=== PATIENT | female | born 1990 | race Caucasian/White ===

== ENCOUNTER 2017-04-16 22:53 | Emergency (ER) | payer OTHER ==
--- NOTE | 2017-04-17 01:34 | ER Document Report ---
ED General - General Chief Complaint: Possible wound infection Stated Complaint: POSSIBLE LACERATION INFECTION Time Seen by Provider: 04/17/17 01:32 Notes: Patient is a 27 year old female who presents with a week old laceration over her left thumb. States that it was closed until she was using the hand yesterday and it split back open somewhat. States that since it reopened she is concerned that it may be infected and want to have it checked. She does note a dull, constant, throbbing pain to the area. Moving the thumb worsens the pain. She is uncertain what improves the pain. She has not noted any purulent expression from the area, spreading erythema, or had fever or constitutional symptoms. She has not seen her primary care doctor regarding this concern. TRAVEL OUTSIDE OF THE [place] IN LAST 30 DAYS: No - Related Data Allergies/Adverse Reactions: No Known Allergies Allergy (Verified 02/17/16 15:30) Past Medical History - General Information source: Patient - Social History Smoking Status: Never Smoker Frequency of alcohol use: None Drug Abuse: None Family History: Reviewed & Not Pertinent, DM, Malignancy. denies: Arthritis, CAD, CVA, Hyperlipidemia, Hypertension, Thyroid Disfunction Pulmonary Medical History: Reports: Hx Bronchitis Neurological Medical History: Reports: Hx Migraine Renal/ Medical History: Denies: Hx Peritoneal Dialysis Malignancy Medical History: Reports: Hx Cervical Cancer - pre cancer cell no cancer Psychiatric Medical History: Reports: Hx Anxiety, Hx Attention Deficit Hyperactivity Disorder - Immunizations Immunizations up to date: No Hx Diphtheria, Pertussis, Tetanus Vaccination: No Review of Systems - Review of Systems Notes: Constitutional: Negative for fever. Cardiovascular: Negative for chest pain. Respiratory: Negative for shortness of breath. Gastrointestinal: Negative for vomiting Musculoskeletal: Negative for back pain. Skin: Positive for old left thumb laceration Neurological: Negative for weakness or numbness. 10 point ROS negative except as marked above and in HPI. Physical Exam - Vital signs Interpretation: Normal Notes: PHYSICAL EXAMINATION: GENERAL: Well-appearing, well-nourished and in no acute distress. HEAD: Atraumatic, normocephalic. EYES: sclera anicteric, conjunctiva are normal. ENT: Moist mucous membranes. NECK: Normal range of motion LUNGS: Normal work of breathing HEART: 2+ radial pulses bilaterally EXTREMITIES: no pitting or edema. No cyanosis. NEUROLOGICAL: No focal neurological deficits. Moves all extremities spontaneously and on command. PSYCH: Normal mood, normal affect. SKIN: Warm, Dry, normal turgor, there is an old, well healing laceration on the dorsal aspect of the left thumb just above the MCP without any surrounding erythema or purulent drainage Course - Re-evaluation Re-evalutation: 04/17/17 05:36 Presentation of a well-healed laceration that does not appear to have any evidence of infection. No limited range of motion at the MCP or PIP. Patient' s vitals otherwise within normal limits. Neurovascularly intact in the RMU distribution. At this time will discharge with return precautions and follow- up recommendations. Verbal discharge instructions given a the bedside and opportunity for questions given. Medication warnings reviewed. Patient is in agreement with this plan and has verbalized understanding of return precautions. Discharge - Discharge Clinical Impression: Laceration of left thumb Qualifiers: Encounter type: initial encounter Damage to nail status: without damage Foreign body presence: without foreign body Qualified Code(s): S61.012A - Laceration without foreign body of left thumb without damage to nail, initial encounter Condition: Good Disposition: HOME, SELF-CARE Additional Instructions: The area does not appear infected. Apply topical antibiotic ointment twice daily to the affected area until the wound has healed. Return for any additional concerns you may have including pus draining from the wound, spreading redness, increased pain or fever greater than 100.4F. Referrals: MAIDA GIBBS MD [Primary Care Provider] - Follow up as needed
== END 2017-04-17 02:21 | disposition home or self-care (01) ==
LOC: ER 22:53
DX: S61.012A Laceration without foreign body of left thumb without damage to nail, initial encounter (principal); W45.8XXA Other foreign body or object entering through skin, initial encounter; Z85.41 Personal history of malignant neoplasm of cervix uteri
CPT/HCPCS: 99282

== ENCOUNTER 2018-05-06 04:02 | Emergency (ER) | payer OTHER ==
[2018-05-06] MEDS ORDERED: DIPHENHYDRAMINE HCL 50 MG/ML VIAL IV ONE (04:10)
[2018-05-06] MEDS ORDERED: NORMAL SALINE 1000 ML 1,000 ML IV ONE (04:10)
[2018-05-06] MEDS ORDERED: METOCLOPRAMIDE HCL INJ/PF 10 MG/2 ML SDV IV ONE (04:10)
--- NOTE | 2018-05-06 04:51 | ER Document Report ---
ED Headache - General Chief Complaint: Headache Stated Complaint: HEADACHE Time Seen by Provider: 05/06/18 04:10 Notes: The patient is a 28-year-old female, past medical history prior headaches, presents with a diffuse headache over the past day. She has had this in the past and it resolved without any intervention. She denies blurry vision, focal weakness, numbness, tingling, neck stiffness, fevers, photophobia, abdominal pain or difficulty walking. TRAVEL OUTSIDE OF THE [place] IN LAST 30 DAYS: No - Related Data Allergies/Adverse Reactions: No Known Allergies Allergy (Verified 02/17/16 15:30) Past Medical History - General Information source: Patient - Social History Smoking Status: Unknown if Ever Smoked Family History: Reviewed & Not Pertinent, DM, Malignancy. denies: Arthritis, CAD, CVA, Hyperlipidemia, Hypertension, Thyroid Disfunction Pulmonary Medical History: Reports: Hx Bronchitis Neurological Medical History: Reports: Hx Migraine Renal/ Medical History: Denies: Hx Peritoneal Dialysis Malignancy Medical History: Reports: Hx Cervical Cancer - pre cancer cell no cancer Psychiatric Medical History: Reports: Hx Anxiety, Hx Attention Deficit Hyperactivity Disorder - Immunizations Immunizations up to date: No Hx Diphtheria, Pertussis, Tetanus Vaccination: No Review of Systems - Review of Systems Notes: REVIEW OF SYSTEMS: CONSTITUTIONAL: -fevers, -chills EENT: -eye pain, -difficulty swallowing, -nasal congestion CARDIOVASCULAR: -chest pain, -syncope. RESPIRATORY: -cough, -SOB GASTROINTESTINAL: -abdominal pain, -nausea, -vomiting, -diarrhea GENITOURINARY: -dysuria, -hematuria MUSCULOSKELETAL: -back pain, -neck pain SKIN: -rash or skin lesions. HEMATOLOGIC: -easy bruising or bleeding. LYMPHATIC: -swollen, enlarged glands. NEUROLOGICAL: -altered mental status or loss of consciousness, +headache, - neurologic symptoms PSYCHIATRIC: -anxiety, -depression. ALL OTHER SYSTEMS REVIEWED AND NEGATIVE. Physical Exam - Notes Notes: PHYSICAL EXAMINATION: GENERAL: Well-appearing, well-nourished and in no acute distress. HEAD: Atraumatic, normocephalic. EYES: Pupils equal round and reactive to light, extraocular movements intact, sclera anicteric, conjunctiva are normal. ENT: nares patent, oropharynx clear without exudates. Moist mucous membranes. NECK: Normal range of motion, supple without lymphadenopathy LUNGS: Breath sounds clear to auscultation bilaterally and equal. No wheezes rales or rhonchi. HEART: Regular rate and rhythm without murmurs ABDOMEN: Soft, nontender, normoactive bowel sounds. No guarding, no rebound. No masses appreciated. EXTREMITIES: Normal range of motion, no pitting or edema. No cyanosis. NEUROLOGICAL: Cranial nerves grossly intact. Normal speech, normal gait. Normal sensory and motor exams. PSYCH: Normal mood, normal affect. SKIN: Warm, Dry, normal turgor, no rashes or lesions noted. Course - Re-evaluation Re-evalutation: Patient has had this headache in the past. It does not appear to be consistent with meningitis, SAH or ICH at this time. She is not . After headache cocktail, she feels much better and her headache completely resolved. Instructed her to follow-up with her primary care physician and neurologist for further evaluation and treatment. Given strict return precautions and she understands. Discharge - Discharge Clinical Impression: Headache Qualifiers: Headache type: unspecified Headache chronicity pattern: unspecified pattern Intractability: not intractable Qualified Code(s): R51 - Headache Condition: Stable Disposition: HOME, SELF-CARE Additional Instructions: HEADACHE: The physician does not feel that the headache you are experiencing has a serious underlying cause. Most headaches are due to emotional stress, with resultant muscle tension (tension headache). Occasionally, headaches are secondary to changes in the blood vessels of the scalp (vascular headache and migraine headache). Sometimes, a headache is the first symptom of another developing illness, such as a viral infection. You have no evidence of stroke, bleeding, meningitis, or other serious cause of your headache. The treatment of headaches varies with the severity and cause of the pain. Not all headaches need pain shots. In fact, there is evidence that using narcotics for headaches may make them worse in the long run. The physician will determine the therapy that's in your best interest. If you develop a fever, if the headache is different from any you've previously experienced, or if the headache progressively worsens, then call your physician at once or go to the emergency room. REGLAN (METOCLOPRAMIDE): Reglan has been prescribed. This medicine affects the stomach and intestines. It can be used to treat nausea and vomiting, to prevent reflux of stomach acid up into the esophagus, or to increase the contractions of the stomach and intestines. It is often prescribed for esophagitis, and for paralysis of the stomach in diabetics. Reglan can cause either mild restlessness or drowsiness. You should contact the doctor at once if you become extremely restless, anxious, or cannot sleep, or if you develop uncontrollable motions of the lips, tongue, or jaw. Do not take alcohol with this medicine. Do not drive or operate machinery until you have been taking this medicine long enough to know how it affects you. Call the doctor if you develop abdominal pains, lightheadedness, black stool, or blood in the stool or vomitus. USE OF DIPHENHYDRAMINE: Diphenhydramine (Benadryl) is an antihistamine and has been recommended to help treat your headache and to prevent side effects of other medications used to treat headaches. The medication can be repeated four times daily. Age Elixir (12.5 mg/tsp) 25 mg pill adult 1-2 tabs Antihistamines may cause drowsiness, especially with the first dose. Do not operate machinery or drive while under the effects of the medication. Do not combine the medication with alcohol, or with any other medication without talking to your doctor. FOLLOW-UP CARE: If you have been referred to a physician for follow-up care, call the physician s office for an appointment as you were instructed or within the next two days. If you experience worsening or a significant change in your symptoms, notify the physician immediately or return to the Emergency Department at any time for re-evaluation. Forms: Elevated Blood Pressure Referrals: MAIDA GIBBS MD [Primary Care Provider] - Follow up as needed
[2018-05-06 06:03] VITALS: BP 147/83
== END 2018-05-06 05:57 | disposition home or self-care (01) ==
LOC: ER 04:02
DX: R51 Headache (principal)
CPT/HCPCS: 99284; 96361; 96374; 96375; 36415; 84703; J1200; J2765; J7030

== ENCOUNTER 2019-01-23 00:13 | Emergency (ER) | payer SELFPAY ==
[2019-01-23] MEDS ORDERED: SULFAMETHOXAZOLE/TRIMETHOPRIM 800-160 MG TABLET PO ONE (04:26)
[2019-01-23] MEDS ORDERED: OXYCODONE-ACETAMINOPHEN 5-325 MG TABLET PO ONE (04:26)
[2019-01-23] MEDS ORDERED: CEPHALEXIN 500 MG CAPSULE PO ONE (04:26)
[2019-01-23] MEDS ORDERED: LIDOCAINE 1% INJ-PF (10 MG/ML) 30 ML SDV INJ ONE (04:26)
[2019-01-23] MEDS ORDERED: PROMETHAZINE HCL 25 MG TABLET PO ONE (04:26)
--- NOTE | 2019-01-23 04:42 | ER Document Report ---
ED Skin Rash/Insect Bite/Abscs - General Chief Complaint: Skin Problem Stated Complaint: ARM SWELLING Time Seen by Provider: 01/23/19 04:15 Primary Care Provider: MAIDA GIBBS MD [ACTIVE STAFF] - Follow up as needed Notes: Patient is a 28-year-old female that comes to the emergency department for chief complaint of an infected area on her right forearm. She states that this started about 2 days ago, she states that it came to ahead, pop, drain, however the next day she had spreading redness over the area. The area has become more hard as well. She denies fever chills, nausea or vomiting. She denies any da aliyah medications or medical problems. She smokes. TRAVEL OUTSIDE OF THE [place] IN LAST 30 DAYS: No - Related Data Allergies/Adverse Reactions: No Known Allergies Allergy (Verified 01/23/19 00:25) Past Medical History - General Information source: Patient - Social History Smoking Status: Current Every Day Smoker Smoking Education Provided: Yes - > 4 min Frequency of alcohol use: None Drug Abuse: None Lives with: Family Family History: Reviewed & Not Pertinent, DM, Malignancy. denies: Arthritis, CAD, CVA, Hyperlipidemia, Hypertension, Thyroid Disfunction Pulmonary Medical History: Reports: Hx Bronchitis Neurological Medical History: Reports: Hx Migraine Renal/ Medical History: Denies: Hx Peritoneal Dialysis Malignancy Medical History: Reports: Hx Cervical Cancer - pre cancer cell no cancer Psychiatric Medical History: Reports: Hx Anxiety, Hx Attention Deficit Hyperactivity Disorder - Immunizations Immunizations up to date: Yes Hx Diphtheria, Pertussis, Tetanus Vaccination: Yes Review of Systems - Review of Systems Constitutional: No symptoms reported EENT: No symptoms reported Cardiovascular: No symptoms reported Respiratory: No symptoms reported Gastrointestinal: No symptoms reported Genitourinary: No symptoms reported Female Genitourinary: No symptoms reported Musculoskeletal: No symptoms reported Skin: See HPI Hematologic/Lymphatic: No symptoms reported Neurological/Psychological: No symptoms reported Physical Exam - Vital signs Vitals: Temp Pulse Resp BP Pulse Ox 98.3 F 80 18 145/74 H 96 01/23/19 00:30 01/23/19 00:30 01/23/19 00:30 01/23/19 00:30 01/23/19 00:30 - Notes Notes: GENERAL: Alert, interacts well. No acute distress. HEAD: Normocephalic, atraumatic. EYES: Pupils equal, round, and reactive to light. Extraocular movements intact. ENT: Oral mucosa moist, tongue midline. Oropharynx unremarkable. Airway patent. Nares patent, no nasal septal hematoma, TM's intact. NECK: Full range of motion. Supple. Trachea midline. LUNGS: Clear to auscultation bilaterally, no wheezes, rales, or rhonchi. No respiratory distress. HEART: Regular rate and rhythm. No murmur ABDOMEN: Soft, non-tender. Non-distended. Bowel sounds present in all 4 quadrants. GENITOURINARY: Deferred EXTREMITIES: Moves all 4 extremities spontaneously. No edema, normal radial and dorsalis pedis pulses bilaterally. No cyanosis. BACK: no cervical, thoracic, lumbar midline tenderness. No saddle anesthesia, normal distal neurovascular exam. NEUROLOGICAL: Alert and oriented x3. Normal speech. [cranial nerves II through XII grossly intact]. PSYCH: Normal affect, normal mood. SKIN: There is an indurated area over the extensor surface of the distal forearm before the wrist but not including the wrist. There is surrounding cellulitis which also does not extend to the wrist. Wrist exam is normal. No streaking of the arm. Skin examination is unremarkable otherwise. Course - Re-evaluation Re-evalutation: Exam consistent with abscess in the right forearm with some surrounding cellul itis. No evidence of extension to the joint of the elbow or wrist. Unremarkable examination otherwise. Ultrasound performed at bedside, appears to show a small fluid pocket. Therefore incision and drainage was performed with small amount of purulent discharge. Area was cleaned, dressed, patient placed on antibiotics for the cellulitis. Discussed care and return precautions. Patient states understanding and agreement. - Vital Signs Vital signs: Temp Pulse Resp BP Pulse Ox 97.4 F 76 18 128/62 H 98 01/23/19 06:06 01/23/19 06:06 01/23/19 06:06 01/23/19 06:06 01/23/19 06:06 Procedures - Incision and Drainage Right forearm Type: Single Anesthetic type: 1% Lidocaine mL's of anesthetic: 6 Blade size: 11 I&D procedure: Shurclens applied, Sterile dressing applied Incision Method: Incision made by scalpel Amount/type of drainage: Small amount of purulent discharge and blood Discharge - Discharge Clinical Impression: Cellulitis and abscess of upper extremity Condition: Stable Disposition: HOME, SELF-CARE Additional Instructions: Your evaluation shows an abscess and surrounding cellulitis. Abscess has been opened to promote healing. Take antibiotics as prescribed. Keep clean, clean with soap and water. Keep absorbing dressing over the area. This should heal with time. Return if you worsen including spreading redness, fever or chills, swelling, increased pain, or any other concerning or worsening symptoms. Prescriptions: Cephalexin Monohydrate [Keflex 500 mg Capsule] 500 mg PO QID #28 capsule Sulfamethoxazole/Trimethoprim [Bactrim Ds Tablet] 1 each PO BID #14 tablet Forms: Smoking Cessation Education, Return to Work Referrals: MAIDA GIBBS MD [ACTIVE STAFF] - Follow up as needed
[2019-01-23 06:07] VITALS: BP 128/62
== END 2019-01-23 06:08 | disposition home or self-care (01) ==
LOC: ER 00:13
PROC: 0H9BXZZ Drainage of Right Upper Arm Skin, External Approach (ICD-10-PCS; principal; 2019-01-23)
DX: L02.413 Cutaneous abscess of right upper limb (principal); L03.113 Cellulitis of right upper limb; M79.89 Other specified soft tissue disorders; F17.200 Nicotine dependence, unspecified, uncomplicated
CPT/HCPCS: 99406; 99283; 10060; J3490

== ENCOUNTER 2019-05-06 23:55 | Emergency (ER) | payer SELFPAY ==
[2019-05-07 00:56] VITALS: BP 147/79
== END 2019-05-07 02:14 | disposition left against medical advice (07) ==
LOC: ER 23:55
DX: Z53.21 Procedure and treatment not carried out due to patient leaving prior to being seen by health care provider (principal)

== ENCOUNTER 2019-08-23 13:52 | Emergency (ER) | payer SELFPAY ==
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
[2019-08-23 14:51] VITALS: BP 147/75
== END 2019-08-23 15:11 | disposition home or self-care (01) ==
LOC: ER 13:52
DX: S92.001A Unspecified fracture of right calcaneus, initial encounter for closed fracture (principal); S92.211A Displaced fracture of cuboid bone of right foot, initial encounter for closed fracture; F17.210 Nicotine dependence, cigarettes, uncomplicated; V17.4XXA Pedal cycle driver injured in collision with fixed or stationary object in traffic accident, initial encounter